=== PATIENT | male | born 1995 ===

== ENCOUNTER 2022-02-27 12:45 | Emergency (ER) | payer SELFPAY ==
[~2022-02-27] VITALS: Wt 74.4 kg
[2022-02-27] MEDS ORDERED: CIPRODEX 0.3%-7.5 ML OT (14:45)
[2022-02-27] MEDS ORDERED: CIPRO500 MG PO (14:45)
== END 2022-02-27 14:50 | disposition home or self-care (01) ==
LOC: ED 12:45
DX: H60.91 Unspecified otitis externa, right ear (principal)